=== PATIENT | male | born 1940 ===

== ENCOUNTER 2018-09-19 09:22 | Inpatient (IN) | payer OTHER ==
[~2018-09-19] VITALS: Ht 167.6 cm; Wt 113.4 kg
[~2018-09-19 09:22] MED LIST: AVANDIA4 MG; ECOTRIN81 MG; ENALAPRIL MALE2.5 MG; FOLIC ACID0.4 MG
[2018-09-19] MEDS ORDERED: METFORMIN HCL500 M2 (09:32)
== END 2018-10-14 14:17 | disposition home or self-care (01) | DRG 344 ==
LOC: ER 09:22 → ICU 19:07 → SEC-K 19:07 → SURG 19:07 → ICU 09-20 14:47 → MEDJ 09-25 20:08
PROVIDERS: Surgery
PROC: BW21ZZZ Computerized Tomography (CT Scan) of Abdomen and Pelvis (ICD-10-PCS; 2018-09-19)
PROC: 3E0F7GC Introduction of Other Therapeutic Substance into Respiratory Tract, Via Natural or Artificial Opening (ICD-10-PCS; 2018-09-19)
PROC: 0DC80ZZ Extirpation of Matter from Small Intestine, Open Approach (ICD-10-PCS; principal; 2018-09-20 11:30)
PROC: 02HV33Z Insertion of Infusion Device into Superior Vena Cava, Percutaneous Approach (ICD-10-PCS; 2018-09-24)
PROC: BW20ZZZ Computerized Tomography (CT Scan) of Abdomen (ICD-10-PCS; 2018-10-02)
PROC: 0J980ZX Drainage of Abdomen Subcutaneous Tissue and Fascia, Open Approach, Diagnostic (ICD-10-PCS; 2018-10-04)
DX: K56.3 Gallstone ileus (principal); A41.89 Other specified sepsis; T81.44XA Sepsis following a procedure, initial encounter; K63.2 Fistula of intestine; E87.2 Acidosis; G82.22 Paraplegia, incomplete; L03.114 Cellulitis of left upper limb; T81.41XA Infection following a procedure, superficial incisional surgical site, initial encounter; N17.8 Other acute kidney failure; R18.8 Other ascites; J90 Pleural effusion, not elsewhere classified; N39.0 Urinary tract infection, site not specified; D72.828 Other elevated white blood cell count; K56.690 Other partial intestinal obstruction; K80.80 Other cholelithiasis without obstruction; I10 Essential (primary) hypertension; E11.9 Type 2 diabetes mellitus without complications; N31.9 Neuromuscular dysfunction of bladder, unspecified; E66.9 Obesity, unspecified; Z91.013 Allergy to seafood; Z74.01 Bed confinement status

== ENCOUNTER 2020-12-28 15:22 | Emergency (ER) | payer OTHER ==
[~2020-12-28] VITALS: Ht 152.4 cm; Wt 117.9 kg
[~2020-12-28 15:22] MED LIST changes: +METFORMIN HCL500 M2
[2020-12-28] MEDS ORDERED: LISINOPRIL5 MG (16:03)
[2020-12-28] MEDS ORDERED: NEURONTIN300 MG (16:03)
[2020-12-28] MEDS ORDERED: ASPIRIN81 MG (16:03)
[2020-12-28] MEDS ORDERED: SIMVASTATIN5 MG (16:03)
[2020-12-28] MEDS ORDERED: BACTRIM DS TAB1 EACH PO (21:32)
== END 2020-12-28 23:42 | disposition home or self-care (01) ==
LOC: ER 15:22
DX: E11.65 Type 2 diabetes mellitus with hyperglycemia (principal); Z79.4 Long term (current) use of insulin

== ENCOUNTER 2022-02-01 09:05 | Inpatient (IN) | payer OTHER ==
[~2022-02-01] VITALS: Ht 167.6 cm; Wt 90.7 kg
[~2022-02-01 09:05] MED LIST changes: +ASPIRIN81 MG; +BACTRIM DS TAB1 EACH PO; +LISINOPRIL5 MG; +NEURONTIN300 MG; +SIMVASTATIN5 MG
== END 2022-02-10 20:36 | disposition home or self-care (01) | DRG 379 ==
LOC: ER 09:05 → ICU 02-02 12:15 → MEDJ 02-03 18:06
PROVIDERS: ADMIT Specialist; ATTEND Specialist
PROC: BW21ZZZ Computerized Tomography (CT Scan) of Abdomen and Pelvis (ICD-10-PCS; principal; 2022-02-01)
PROC: 30243N1 Transfusion of Nonautologous Red Blood Cells into Central Vein, Percutaneous Approach (ICD-10-PCS; 2022-02-07)
PROC: 02HV33Z Insertion of Infusion Device into Superior Vena Cava, Percutaneous Approach (ICD-10-PCS; 2022-02-07)
DX: K62.5 Hemorrhage of anus and rectum (principal); K57.31 Diverticulosis of large intestine without perforation or abscess with bleeding; I95.89 Other hypotension; E86.1 Hypovolemia; G54.8 Other nerve root and plexus disorders; D64.89 Other specified anemias; E11.9 Type 2 diabetes mellitus without complications; Z20.822 Contact with and (suspected) exposure to COVID-19; Z79.4 Long term (current) use of insulin

== ENCOUNTER 2022-08-10 10:05 | Emergency (ER) | payer OTHER ==
[~2022-08-10] VITALS: Ht 167.6 cm; Wt 113.4 kg
[2022-08-10] MEDS ORDERED: LEVOFLOXACIN750 MG PO (15:58)
[2022-08-10] MEDS ORDERED: CLEOCIN HCL300 MG PO (15:58)
== END 2022-08-10 18:55 | disposition home or self-care (01) ==
LOC: ER 10:05
DX: L89.159 Pressure ulcer of sacral region, unspecified stage (principal); E11.9 Type 2 diabetes mellitus without complications; Z79.84 Long term (current) use of oral hypoglycemic drugs; Z91.041 Radiographic dye allergy status; Z91.013 Allergy to seafood